=== PATIENT | male | born 1990 | race African-American/Black ===

== ENCOUNTER 2018-11-12 06:53 | Emergency (ER) | payer SELFPAY ==
[~2018-11-12] VITALS: Ht 170.2 cm; Wt 99.0 kg
[2018-11-12 07:30] VITALS: BP 136/76
== END 2018-11-12 07:50 | disposition left against medical advice (07) ==
LOC: ER 06:53
DX: R63.0 Anorexia (principal); F17.200 Nicotine dependence, unspecified, uncomplicated
CPT/HCPCS: 99281